=== PATIENT | male | born 1955 | race Caucasian/White ===

== ENCOUNTER 2018-02-01 20:00 | Emergency (ER) | payer SELFPAY ==
[~2018-02-01] VITALS: Ht 167.6 cm; Wt 81.6 kg
[2018-02-01 20:10] VITALS: BP_SYST 141
[2018-02-01] MEDS ORDERED: IBUPROFEN 600 MG TABLET PO ONE (21:00)
[2018-02-01 22:15] VITALS: BP_SYST 140
== END 2018-02-01 22:15 | disposition home or self-care (01) ==
LOC: SED 20:00
DX: S39.012A Strain of muscle, fascia and tendon of lower back, initial encounter (principal); E11.9 Type 2 diabetes mellitus without complications; E03.9 Hypothyroidism, unspecified; V43.62XA Car passenger injured in collision with other type car in traffic accident, initial encounter; Y93.89 Activity, other specified; Y92.410 Unspecified street and highway as the place of occurrence of the external cause; Y99.8 Other external cause status
CPT/HCPCS: 72110; 72220-TC; 73502; 99284